=== PATIENT | female | born 1995 | race Asian ===

== ENCOUNTER 2016-09-19 23:42 | Emergency (ER) | payer OTHER ==
[~2016-09-19] VITALS: Ht 157.5 cm; Wt 64.5 kg
[2016-09-19 23:48] VITALS: Ht 157.5 cm; Wt 64.5 kg
[2016-09-20] MEDS ORDERED: KETOROLAC TROMETHAMINE 30 MG/ML VIAL IV STA (00:08)
[2016-09-20] MEDS ORDERED: ACETAMINOPHEN 500 MG TAB PO STA (00:08)
[2016-09-20] MEDS ORDERED: SODIUM CHLORIDE 0.9% 1000ML 1,000 ML IV ONE ×2 (00:15)
[2016-09-20 00:41] LABS: BASO % 0.1 %; BASO ABS # 0.01 K/uL (0-0.2); COMPLETE YES; EOS % 0.1 %; HEMATOCRIT 36.2 % (37-47); IG% 0.2 %; LYMPH % 5.1 %; LYMPH ABS # 0.56 K/uL (1.2-3.4); MEAN CORPUSCULAR HEMOGLOBIN 32.4 pg (25-34); MEAN CORPUSCULAR HGB CONC 35.6 g/dl (32-36); MEAN PLATELET VOLUME 11.6 fL (7.4-10.4); NEUT % 90.5 %; PLATELET COUNT 169 K/uL (130-400); RED BLOOD COUNT 3.98 M/uL (4.2-5.4); WHITE BLOOD COUNT 10.97 K/uL (4.8-10.8)
[2016-09-20 00:53] LABS: MANUAL MICROSCOPIC REQUIRED? YES; URINE APPEARANCE CLEAR (CLEAR); URINE BILIRUBIN NEG (NEG); URINE COLOR YELLOW; URINE NITRITE NEG (NEG); UROBILINOGEN NEG (NEG)
[2016-09-20 00:56] LABS: REVIEW REQ? YES
[2016-09-20 01:07] LABS: URINE BACTERIA 2+ (NEG); URINE RBC 0-4 /hpf (0-4); URINE WBC 0 /hpf (0-5)
[2016-09-20 01:08] LABS: BUN/CREATININE RATIO 10.6 (10-20); CREATININE 0.84 mg/dl (0.60-1.20); POTASSIUM 3.4 mmol/L (3.5-5.1); URINE MUCUS PRESENT (NONE PRSENT); ZZUR CULT IF INDIC CLEAN CATCH YES
[2016-09-20 01:13] LABS: ALB/GLOB RATIO 1.2 (0.9-2)
[2016-09-20 02:48] VITALS: BP 100/43; PULSE 107; TEMP 37.2; O2SAT 97
--- NOTE | 2016-09-20 03:58 | EMERGENCY ROOM VISIT NOTE ---
History First contact with patient: 23:52 Chief Complaint: FEVER Stated Complaint: FEVER,BODYACHES History of Present Illness The patient is a 21 year old female who presents to the Emergency Room with complaints of fever and chills over the past day. The patient is a [employer] student and states that she was feeling warm around 8 AM when she woke up. The patient was able to go to class but has had decreased appetite. She took her temperature at home and states that it was over 104. She took an unknown over- the-counter medication around 6 PM, and this seemed to have improved her symptoms. She continues to have fever and feels ill, prompting her to come to the ER. The patient does not have significant headache, neck pain, chest pain, sore throat, or abdominal pain. She considers herself usually healthy. She denies chance of . She rates her overall discomfort a 6/10. Review of Systems More than 10 systems were reviewed and otherwise negative with the exception of history of present illness. Past Medical/Surgical History No chronic medical disease Social History Smoking Status: Current Every Day Smoker Occupation Status: [employer] student Current/Historical Medications No Active Prescriptions or Reported Meds Allergies Coded Allergies: No Known Allergies (Unverified , 09/20/16) Physical Exam Vital Signs Date Time Temp Pulse Resp B/P Pulse Ox O2 Delivery O2 Flow Rate FiO2 09/20/16 02:48 37.2 107 18 100/43 97 Room Air 09/20/16 01:43 96/42 09/20/16 01:24 106 16 87/40 97 Room Air 09/20/16 01:22 37.6 09/19/16 23:48 38.9 123 20 98/56 97 Room Air Pain Rating (0-10): 0 Physical Exam VITALS: Vitals are noted on the nurse's note and reviewed by myself. Vital signs with fever GENERAL: Well-developed, well-nourished, female who appears ill but nontoxic. HEAD: Normocephalic atraumatic. EARS: External ear normal. External auditory canals clear, tympanic membranes pearly [place] without erythema or effusion bilaterally. EYES: Pupils equal round and reactive to light and accommodation. Conjunctivae without injection, sclerae without icterus. Extraocular movements intact. NOSE: Patent, turbinates without inflammation or discharge. MOUTH: Mucous membranes moist. Tonsils are not enlarged. Pharynx without erythema, blood, or exudate. Uvula midline. Airway patent. NECK: Supple without nuchal rigidity. No lymphadenopathy. No thyromegaly. Cervical spine is nontender. No meningismus. HEART: Regular rate and rhythm without murmurs gallops or rubs. LUNGS: Clear to auscultation bilaterally without wheezes, rales or rhonchi. No retractions or accessory muscle use. ABDOMEN: Positive normal bowel sounds x 4. Soft, nontender, without masses or organomegaly. No guarding or rebound tenderness. MUSCULOSKELETAL: No muscle atrophy, erythema, or edema noted. Full range of motion without joint tenderness in all extremities. NEURO: Patient was alert and oriented to person place and time. CN II through XII grossly intact. Medical Decision & Procedures Laboratory Results 09/20/16 00:25 Red Blood Count 3.98, Mean Corpuscular Volume 91.0, Mean Corpuscular Hemoglobin 32.4, Mean Corpuscular Hemoglobin Concent 35.6, Mean Platelet Volume 11.6, Neutrophils (%) (Auto) 90.5, Lymphocytes (%) (Auto) 5.1, Monocytes (%) (Auto) 4.0, Eosinophils (%) (Auto) 0.1, Basophils (%) (Auto) 0.1, Neutrophils # (Auto) 9.93, Lymphocytes # (Auto) 0.56, Monocytes # (Auto) 0.44, Eosinophils # (Auto) 0.01, Basophils # (Auto) 0.01 09/20/16 00:25 Test 09/20/16 00:25 09/20/16 01:35 White Blood Count 10.97 K/uL (4.8-10.8) Red Blood Count 3.98 M/uL (4.2-5.4) Hemoglobin 12.9 g/dL (12.0-16.0) Hematocrit 36.2 % (37-47) Mean Corpuscular Volume 91.0 fL (80-100) Mean Corpuscular Hemoglobin 32.4 pg (25-34) Mean Corpuscular Hemoglobin Concent 35.6 g/dl (32-36) Platelet Count 169 K/uL (130-400) Mean Platelet Volume 11.6 fL (7.4-10.4) Neutrophils (%) (Auto) 90.5 % Lymphocytes (%) (Auto) 5.1 % Monocytes (%) (Auto) 4.0 % Eosinophils (%) (Auto) 0.1 % Basophils (%) (Auto) 0.1 % Neutrophils # (Auto) 9.93 K/uL (1.4-6.5) Lymphocytes # (Auto) 0.56 K/uL (1.2-3.4) Monocytes # (Auto) 0.44 K/uL (0.11-0.59) Eosinophils # (Auto) 0.01 K/uL (0-0.5) Basophils # (Auto) 0.01 K/uL (0-0.2) RDW Standard Deviation 41.9 fL (36.4-46.3) RDW Coefficient of Variation 12.6 % (11.5-14.5) Immature Granulocyte % (Auto) 0.2 % Immature Granulocyte # (Auto) 0.02 K/uL (0.00-0.02) Urine Color YELLOW Urine Appearance CLEAR (CLEAR) Urine pH 7.0 (4.5-7.5) Urine Specific [place] 1.020 (1.000-1.030) Urine Protein TRACE (NEG) Urine Glucose (UA) NEG (NEG) Urine Ketones 3+ (NEG) Urine Occult Blood NEG (NEG) Urine Nitrite NEG (NEG) Urine Bilirubin NEG (NEG) Urine Urobilinogen NEG (NEG) Urine Leukocyte Esterase NEG (NEG) Urine RBC 0-4 /hpf (0-4) Urine WBC 0 /hpf (0-5) Urine Epithelial Cells >30 /lpf (0-5) Urine Bacteria 2+ (NEG) Urine Mucus PRESENT (NONE PRSENT) Urine Test NEG (NEG) Anion Gap 10.0 mmol/L (3-11) Est Creatinine Clear Calc Drug Dose 93.4 ml/min Estimated GFR () 115.1 Estimated GFR (Non- 99.4 BUN/Creatinine Ratio 10.6 (10-20) Calcium Level 9.0 mg/dl (8.5-10.1) Total Bilirubin 0.9 mg/dl (0.2-1) Aspartate Amino Transf (AST/SGOT) 20 U/L (15-37) Alanine Aminotransferase (ALT/SGPT) 20 U/L (12-78) Alkaline Phosphatase 92 U/L (45-117) Total Protein 7.6 gm/dl (6.4-8.2) Albumin 4.1 gm/dl (3.4-5.0) Globulin 3.5 gm/dl (2.5-4.0) Albumin/Globulin Ratio 1.2 (0.9-2) Influenza Type A Antigen Neg for Influ A (NEG) Influenza Type B Antigen Neg for Influ B (NEG) Lactic Acid Level 0.5 mmol/L (0.4-2.0) Medications Administered Medications (Trade) Dose Ordered Sig/Latisha Route Start Time Stop Time Status Last Admin Dose Admin Sodium Chloride 1,000 ml @ 999 mls/hr Q1H1M ONCE IV 09/20/16 00:15 09/20/16 01:15 DC 09/20/16 00:28 999 MLS/HR Sodium Chloride (Nss 1000ml) 1,000 ml @ 999 mls/hr Q1H1M ONCE IV 09/20/16 00:15 09/20/16 01:15 DC 09/20/16 00:28 999 MLS/HR Acetaminophen (Tylenol Tab) 1,000 mg NOW STAT PO 09/20/16 00:08 09/20/16 00:11 DC 09/20/16 00:29 1,000 MG Ketorolac Tromethamine (Toradol Inj) 30 mg NOW STAT IV 09/20/16 00:08 09/20/16 00:11 DC 09/20/16 00:30 30 MG ED Course Physical exam and history were performed. Nursing notes and EMR were reviewed. Patient appears to have fever and flulike symptoms for the past 12-16 hours. On exam the patient does appear ill but nontoxic. She does have a fever here in the department. IV access was established and labs were obtained. The patient was hydrated with 2 L normal saline. She was given IV Toradol and oral Tylenol for her symptoms. Influenza swabs were gathered. The patient's blood work is as above and was reviewed. She does not have a significantly elevated white blood cell count, gross anemia, bandemia, or significant electrolyte imbalance. Influenza swabs were negative. Lactic acid was negative. Blood cultures are pending. The patient's urine is somewhat concentrated and contaminated. I will await urine culture before treating her urine. On multiple re-evaluations the patient had significant improvement of her symptoms. She did have some episodes of lower blood pressure, however the patient states that her typical pressure is in the low 90s over 50. She was afebrile and 100/43 at end of her visit after hydration and medication. Overall I do suspect a viral etiology of the patient's discomfort. She does not have symptoms of meningitis or encephalitis. She does not have distinct pain to suggest strep pharyngitis. I do feel the patient should be rechecked on a very short interval. I recommended that she follow-up with [facility] later today or very early tomorrow morning. The patient was certainly invited back to the ER if she has any worsening or evolution of her symptoms. The patient was pleased with this and rated her discomfort a 1/10 at the time of her departure. The chart was completed utilizing [employer] Speech Voice Recognition Software. Grammatical errors, random word insertions, pronoun errors, and incomplete sentences are an occasional consequence of this system due to software limitations, ambient noise, and hardware issues. Any formal questions or concerns about the content, text, or information contained within the body of this dictation should be directly addressed to the provider for clarification. . Medical Decision Differential diagnosis: Etiologies such as viral syndrome, otitis, pharyngitis, pneumonia, influenza, meningitis, urinary tract infection, sepsis, bacteremia, as well as others were entertained. Impression Primary Impression: Influenza-like symptoms Departure Information Dispostion Home / Self-Care Condition GOOD Prescriptions No Active Prescriptions or Reported Meds Forms HOME CARE DOCUMENTATION FORM, School Instructions, Additional Instructions: Patient was seen and evaluated in the emergency department for medica care. Return to school on 09/25/2016. Please excuse. IMPORTANT VISIT INFORMATION Patient Instructions My [facility] Additional Instructions You were seen and evaluated today on an emergency basis only. This is not a substitute for, or an effort to provide, complete comprehensive medical care. It is not possible to recognize and treat all injuries or illnesses in a single emergency department visit. For this reason it is recommended that you followup with [facility] in the next 12-36 hours for recheck. For baseline pain relief you may alternate ibuprofen and acetaminophen every 4 hours for pain control. Take 600 mg ibuprofen (Advil) and then 4 hours later take 1000 mg acetaminophen (Tylenol). Do not take more than 3000 mg acetaminophen in a single day. Drink plenty of fluids and remain well hydrated. You are welcome to return to the emergency department anytime with new, worsening, or concerning symptoms. School Instructions Additional School Instructions: Patient was seen and evaluated in the emergency department for medical care. Return to school on 09/25/2016. Please excuse.
== END 2016-09-20 03:02 | disposition home or self-care (01) ==
LOC: C.EDB 23:44 → C.EDC 09-20 03:02
DX: J11.1 Influenza due to unidentified influenza virus with other respiratory manifestations (principal); F17.200 Nicotine dependence, unspecified, uncomplicated